=== PATIENT | male | born 1960 | race Two or more races ===

== ENCOUNTER 2020-06-04 00:49 | Emergency (ER) | payer OTHER ==
[~2020-06-04] VITALS: Ht 170.2 cm; Wt 81.6 kg
[~2020-06-04 00:49] MED LIST: ALEVE220 MG PO
[2020-06-04] MEDS ORDERED: ATACAND4 MG (01:04)
[2020-06-04] MEDS ORDERED: NAMENDA10 MG (01:04)
[2020-06-04] MEDS ORDERED: ZIPSOR25 MG (01:06)
[2020-06-04] MEDS ORDERED: ADDERALL 20 MG20 MG (01:15)
[2020-06-04] MEDS ORDERED: PEPCID40 MG PO (07:21)
[2020-06-04] MEDS ORDERED: LEVSIN/SL0.125 MG SL (07:21)
== END 2020-06-04 07:32 | disposition home or self-care (01) ==
LOC: ER 00:49
DX: K80.20 Calculus of gallbladder without cholecystitis without obstruction (principal); R10.84 Generalized abdominal pain

== ENCOUNTER 2020-06-13 08:07 | Outpatient (CLI) | payer OTHER ==
[~2020-06-13 08:07] MED LIST changes: +ADDERALL 20 MG20 MG; +ATACAND4 MG; +LEVSIN/SL0.125 MG SL; +NAMENDA10 MG; +PEPCID40 MG PO; +ZIPSOR25 MG
== END 2020-06-13 08:13 | disposition home or self-care (01) ==
LOC: MRI 08:07
PROVIDERS: ATTEND Surgery
DX: D18.09 Hemangioma of other sites (principal); R10.11 Right upper quadrant pain
CPT/HCPCS: 74182